=== PATIENT | female | born 1980 | race Asian ===

== ENCOUNTER 2021-09-24 15:10 | Emergency (ER) | payer OTHER ==
[~2021-09-24] VITALS: Ht 157.5 cm; Wt 68.0 kg
[~2021-09-24 15:10] MED LIST: LEVO750T45 PO; METR500T PO
[2021-09-24 15:34] VITALS: BP_SYST 196
--- NOTE | 2021-09-24 15:42 | NUR ---
Pt. bib with 10/10 abd pain that started yesterday, came to [facility] because last 2 X voided passed blood clots, states "feels like going to pass out." Initial BP hypertensive
--- NOTE | 2021-09-24 15:50 | NUR ---
Patient to ER HW bed for evaluation. Side rails up. Assumed care.
--- NOTE | 2021-09-24 16:30 | NUR ---
Assumed pt care. Pt AAOX4, no needs verbalized at this time.
[2021-09-24 17:04] LABS: BILIRUBIN,URINE 1+ (NEGATIVE); BLOOD, URINE 3+ (NEGATIVE); CLARITY/URINE CLOUDY (CLEAR); COLOR,URINE BROWN (YELLOW); GLUCOSE,URINE NEGATIVE (NEGATIVE); KETONES,URINE NEGATIVE (NEGATIVE); LEUKOCYTE ESTERASE ,URINE NEGATIVE (NEGATIVE); NITRITE, URINE POSITIVE (NEGATIVE); PROTEIN URINE 2+ (NEGATIVE); UROBILINOGEN,URINE 0.2 (0.2-1.0)
--- NOTE | 2021-09-24 17:31 | NUR ---
Lab at bedside.
--- NOTE | 2021-09-24 18:00 | NUR ---
Pt c/o abominal pain. MD notified.
--- NOTE | 2021-09-24 18:03 | NUR ---
ER at bedside examining patient.
[2021-09-24 18:10] LABS: RBC,URINE >100 /HPF (0-3)
[2021-09-24 18:11] LABS: BACTERIA,URINE MODERATE /HPF (None Seen); CALCIUM OXALATE CRYSTALS,UR 0-10 /HPF (None Seen); MUCUS,URINE None Seen /LPF (None Seen)
[2021-09-24 18:11] LABS: BASOPHILS # (AUTO) 0.1 K/uL (0.0-0.2); BASOPHILS % (AUTO) 1.3 % (0.0-2.0); EOSINOPHILS # (AUTO) 0.4 K/uL (0.0-0.4); EOSINOPHILS % (AUTO) 3.8 % (0.0-4.0); HEMATOCRIT 40.1 % (36-48); HEMOGLOBIN 13.1 g/dL (12.0-16.0); LYMPHOCYTES # (AUTO) 2.3 K/uL (1.0-5.5); MEAN CORPUSCULAR HEMOGLOBIN 24 pg (27-31); MEAN CORPUSCULAR HGB CONC 33 % (32-36); MEAN CORPUSCULAR VOLUME 73 fL (79.0-98.0); MONOCYTES # (AUTO) 0.4 K/uL (0.0-1.0); MONOCYTES % (AUTO) 3.6 % (1.7-9.3); NEUTROPHILS # (AUTO) 7.2 K/uL (1.8-7.7); NEUTROPHILS % (AUTO) 69.3 % (40.0-70.0); PLATELET COUNT (AUTO) 281 K/uL (130-430); RED BLOOD CELL COUNT(AUTO) 5.48 MIL/uL (4.2-6.2); RED CELL DISTRIBUTION WIDTH 15.6 % (9.0-15.0); WHITE BLOOD COUNT (AUTO) 10.4 K/uL (4.8-10.8)
[2021-09-24] MEDS ORDERED: NACL 0.9% 1,000 ML IV ONE (18:15)
[2021-09-24] MEDS ORDERED: MORPHINE 4 MG INJ. 4 MG/ML VIAL IVP ONE (18:15)
[2021-09-24] MEDS ORDERED: DIPHENHYDRAMINE INJ 50 MG/ML VIAL IVP ONE (18:15)
[2021-09-24 18:22] LABS: CREATININE 0.7 mg/dL (0.55-1.30); POTASSIUM 3.7 mmol/L (3.5-5.1)
[2021-09-24 18:28] LABS: ALBUMIN 3.6 g/dL (3.4-4.8); TOTAL BILIRUBIN 0.2 mg/dL (0.0-1.0)
--- NOTE | 2021-09-24 18:59 | NUR ---
attempted to start IV twice unsuccessful
--- NOTE | 2021-09-24 20:10 | NUR ---
# 24 gauge angiocath placed to LAC. Use of asceptic technique. Opsite placed over site. Blood return noted. Blood for lab drawn from site. Flushed with 10 cc of normal saline. No evidence of infiltration noted. Patient tolerated well.
[2021-09-24] MEDS ORDERED: MORPHINE 2 MG/ML INJ. SYRINGE IVP ONE (21:15)
[2021-09-24] MEDS ORDERED: PANTOPRAZOLE SODIUM 40 MG/VIAL (PROTONIX) IVP ONE (21:15)
--- NOTE | 2021-09-24 21:50 | NUR ---
Pt c/o abominal pain. MD notified.
[2021-09-24] MEDS ORDERED: cefTRIAXone 1 GM IVPB PREMIX 50 ML IV ONE (22:15)
[2021-09-25] MEDS ORDERED: PANTOPRAZOLE SODIUM 40 MG/VIAL (PROTONIX) IVP ONE
[2021-09-25] MEDS ORDERED: MAG-AL HYDROX/SIMETH 30 ML UDC PO ONE
[2021-09-25] MEDS ORDERED: LIDOCAINE VISCOUS 2%, 15 ML UDC MM ONE
[2021-09-25] MEDS ORDERED: DIPHENHYDRAMINE INJ 50 MG/ML VIAL IVP ONE
--- NOTE | 2021-09-25 | NUR ---
Pt c/o abominal pain. MD notified.
[2021-09-25] MEDS ORDERED: cefTRIAXone 1 GM IVPB PREMIX 50 ML IV ONE (00:58)
[2021-09-25] MEDS ORDERED: FAMOTIDINE PF 20 MG/2 ML VIAL ONE (00:59)
[2021-09-25] MEDS ORDERED: FAMOTIDINE PF 20 MG/2 ML VIAL IVP ONE (01:15)
[2021-09-25] MEDS ORDERED: CEPH250C PO (01:44)
[2021-09-25] MEDS ORDERED: TRAM50TA PO (01:44)
[2021-09-25] MEDS ORDERED: METO-290 PO (01:44)
[2021-09-25] MEDS ORDERED: PANT20TA2 PO (01:44)
--- NOTE | 2021-09-25 02:17 | NUR ---
Patient given written and verbal discharge instructions and verbalizes understanding. ER MD discussed with patient the results and treatment provided. Patient in stable condition. ID arm band removed. IV catheter removed intact and dressing applied, no active bleeding. Rx of Keflex, Reglan, Protonix, Tramadol given. Patient educated on pain management and to follow up with PMD. Pain Scale 0/10. Opportunity for questions provided and answered. Medication side effect fact sheet provided.
[2021-09-25 02:33] VITALS: BP_SYST 128
== END 2021-09-25 02:17 | disposition home or self-care (01) ==
LOC: SED 15:10
DX: K29.00 Acute gastritis without bleeding (principal); N39.0 Urinary tract infection, site not specified
CPT/HCPCS: 36415; 74176; 76376; 76700; 80053; 81000; 81025; 83605; 83690; 85025; 87040; 87086; 96361; 96365; 96375 ×2; 96376 ×2; 99284; C9113; J0696; J1200 ×2; J2001; J2270 ×2; J3490; J7030

== ENCOUNTER 2022-06-21 13:17 | Emergency (ER) | payer OTHER ==
[~2022-06-21] VITALS: Ht 160 cm; Wt 72.6 kg
[~2022-06-21 13:17] MED LIST changes: +CEPH250C PO; -LEVO750T45 PO; +LEVO750T64 PO; +METO-290 PO; +PANT20TA2 PO; +TRAM50TA PO
[2022-06-21 13:20] VITALS: BP_SYST 163
[2022-06-21] MEDS ORDERED: MORPHINE 4 MG INJ. 4 MG/ML VIAL IVP ONE ×2 (13:45→15:30)
[2022-06-21] MEDS ORDERED: LABETALOL 100 MG/ 20ML VIAL IVP ONE (14:15)
[2022-06-21] MEDS ORDERED: methylPREDNISolone SOD SUCC/PF 62.5 MG/ML VIAL IVP ONE (14:45)
[2022-06-21] MEDS ORDERED: DIPHENHYDRAMINE INJ 50 MG/ML VIAL IVP ONE (14:45)
[2022-06-21] MEDS ORDERED: iohexoL 350 mgI/mL, 100 ML INFUS..BTL IV ONE (14:56)
--- NOTE | 2022-06-21 15:00 | NUR ---
ER at bedside examining patient.
--- NOTE | 2022-06-21 15:08 | NUR ---
PT With radiology dept for CT scan. Pt indicated mild allergy to shell fish. and Radiology dept. notified.
[2022-06-21 15:10] LABS: BASOPHILS # (AUTO) 0.1 K/uL (0.0-0.2); BASOPHILS % (AUTO) 0.6 % (0.0-2.0); EOSINOPHILS # (AUTO) 0.3 K/uL (0.0-0.4); EOSINOPHILS % (AUTO) 2.5 % (0.0-4.0); HEMATOCRIT 37.2 % (36-48); LYMPHOCYTES % (AUTO) 16.8 % (20.5-51.5); MEAN CORPUSCULAR VOLUME 72 fL (79.0-98.0); MONOCYTES # (AUTO) 0.5 K/uL (0.0-1.0); NEUTROPHILS % (AUTO) 76.1 % (40.0-70.0); PLATELET COUNT (AUTO) 281 K/uL (130-430); RED BLOOD CELL COUNT(AUTO) 5.14 MIL/uL (4.2-6.2); RED CELL DISTRIBUTION WIDTH 15.7 % (9.0-15.0); WHITE BLOOD COUNT (AUTO) 11.8 K/uL (4.8-10.8)
--- NOTE | 2022-06-21 15:30 | NUR ---
Pt bib CC Back pain . Pt states back pain radiates to right arm. Pt is nauseated no episodes of vomiting, pt has a headache. BP 210/100 notified doctor.
--- NOTE | 2022-06-21 15:45 | NUR ---
abdominal pain and hypertension addressed per doctor orders.
[2022-06-21 15:58] LABS: CALCIUM 9.2 mg/dL (8.4-11.0); CREATININE 0.92 mg/dL (0.55-1.30); POTASSIUM 3.5 mmol/L (3.5-5.1)
[2022-06-21] MEDS ORDERED: MAG HYDROX/AL HYDROX/SIMETH 30 ML, DICYCLOMINE HCL 20 MG, LIDOCAINE VISCOUS 2% 15ML (PO... PO ONE ×3 (16:00)
[2022-06-21 16:07] LABS: ALBUMIN 3.4 g/dL (3.4-4.8); TOTAL BILIRUBIN 0.4 mg/dL (0.0-1.0)
[2022-06-21] MEDS ORDERED: IBUP-1969 PO (16:51)
[2022-06-21] MEDS ORDERED: CYCL10TA24 PO (16:51)
[2022-06-21] MEDS ORDERED: LIDO1ADH71 TD (16:51)
[2022-06-21] MEDS ORDERED: KETOROLAC TROMETHAMINE 30 MG VIAL IVP ONE (17:00)
--- NOTE | 2022-06-21 17:00 | NUR ---
Pt c/o pain in the abdominal region. Pt refuses morphine and requests propophol. MD notified and discusses with pt. Toradol 60 mg injection given .
[2022-06-21] MEDS ORDERED: KETOROLAC TROMETHAMINE 60 MG/2 ML VIAL IM ONE ×2 (17:10→19:30)
--- NOTE | 2022-06-21 19:08 | NUR ---
Patient given written and verbal discharge instructions and verbalizes understanding. ER MD discussed with patient the results and treatment provided. Patient in stable condition. ID arm band removed. IV catheter removed intact and dressing applied, no active bleeding. Rx of Flexeril, Ibuprofen, Lidocaine given. Patient educated on pain management and to follow up with PMD. Opportunity for questions provided and answered. Medication side effect fact sheet provided.
[2022-06-21 19:17] VITALS: BP_SYST 210
== END 2022-06-21 19:17 | disposition home or self-care (01) ==
LOC: SED 13:17
DX: R07.89 Other chest pain (principal); Z91.013 Allergy to seafood; Z79.899 Other long term (current) drug therapy
CPT/HCPCS: 99285; 71275; 96374; 96375; 71045; 80053; 85025; 84484; 36415; 93005; 74175; 72191; 76376; Q9967; J2001; J1200; J1885; J3490; J2930; J2270